=== PATIENT | female | born 1985 | race Caucasian/White ===

== ENCOUNTER 2022-10-22 16:15 | Emergency (ER) | payer MEDICARE, MEDICAID ==
[~2022-10-22] VITALS: Ht 162.6 cm; Wt 104.3 kg
[2022-10-22 16:39] VITALS: BP 160/95
[2022-10-22] MEDS ORDERED: Clindamycin HC150 MG PO (17:26)
[2022-10-22 17:52] LABS: Source, Urine Clean Catch
[2022-10-22 18:06] LABS: Appearance, Urine Hazy (Clear); Bilirubin, Urine Neg (Neg); Blood, Urine 2+ (Neg); Color, Urine Yellow (P-Yellow); Glucose Qualitative, Urine Neg (Neg); Ketones, Urine Neg (Neg); Leukocyte Esterase, Urine 3+ (Neg); Nitrite, Urine Pos (Neg); Protein, Urine 4+ (Neg); Urobilinogen, Urine NORM (Normal)
[2022-10-22 18:28] LABS: White Blood Cells, Urine 50-100 /hpf (0-5)
[2022-10-22 18:29] LABS: Bacteria Many /hpf; Squamous Epithelial Cells Few /hpf (Few)
[2022-10-22 18:31] LABS: Amorphous Light (0-Heavy)
[2022-10-22] MEDS ORDERED: MACRODANTIN100 M1 PO (18:35)
[2022-10-24 15:12] LABS: HIV AB/P24 AG SCREEN Non Reactive (Non Reactive)
[2022-10-24 23:07] LABS: CHLAMYDIA TRACHOMATIS, NAA Negative (Negative)
[2022-10-25 00:07] LABS: HBSAG SCREEN Negative (Negative)
[2022-10-25 03:09] LABS: HCV AB Non Reactive (Non Reactive)
== END 2022-10-22 18:49 | disposition home or self-care (01) ==
LOC: ER 16:15
PROVIDERS: Student in an Organized Health Care Education/Training Program
DX: N61.0 Mastitis without abscess (principal); Z88.1 Allergy status to other antibiotic agents
CPT/HCPCS: 81001; 81025; 86592; 87077; 87086; 87186

== ENCOUNTER 2023-03-01 21:47 | Emergency (ER) | payer MEDICARE ==
[~2023-03-01] VITALS: Ht 167.6 cm; Wt 68.0 kg
[~2023-03-01 21:47] MED LIST: Clindamycin HC150 MG PO; MACRODANTIN100 M1 PO
[2023-03-01 23:29] VITALS: BP 151/121
[2023-03-01] MEDS ORDERED: Prednisone20 MG PO (23:34)
== END 2023-03-01 23:45 | disposition home or self-care (01) ==
LOC: ER 21:47
DX: L23.7 Allergic contact dermatitis due to plants, except food (principal); Z88.1 Allergy status to other antibiotic agents; Z79.52 Long term (current) use of systemic steroids
CPT/HCPCS: 99282; J7512

== ENCOUNTER 2023-07-05 19:26 | Emergency (ER) | payer MEDICARE, OTHER ==
[~2023-07-05] VITALS: Ht 162.6 cm; Wt 104.3 kg
[~2023-07-05 19:26] MED LIST changes: +Prednisone20 MG PO
[2023-07-05 20:26] VITALS: BP 163/110
[2023-07-05 21:59] LABS: Source, Urine Clean Catch
[2023-07-05 22:13] LABS: Appearance, Urine Hazy (Clear); Bilirubin, Urine Neg (Neg); Blood, Urine 1+ (Neg); Color, Urine Yellow (P-Yellow); Glucose Qualitative, Urine Neg (Neg); Ketones, Urine Neg (Neg); Leukocyte Esterase, Urine 1+ (Neg); Nitrite, Urine Pos (Neg); Protein, Urine 3+ (Neg); Specific Gravity, Urine 1.015 (1.003-1.022); Urobilinogen, Urine NORM (Normal); pH, Urine 6.5 (5.0-8.0)
[2023-07-05 22:27] LABS: Bacteria Many /hpf; Red Blood Cells, Urine 0-2 /hpf (0-2); Squamous Epithelial Cells Rare /hpf (Few)
[2023-07-05 22:59] LABS: Candida species (DNA Probe) Negative (NEGATIVE); G. vaginalis (DNA Probe) Positive (NEGATIVE); T. vaginalis (DNA Probe) Positive (NEGATIVE)
[2023-07-09 08:31] LABS: HIV 1,2 COMBO ANTIGEN/ANTIBODY Negative (Negative)
[2023-07-09 13:19] LABS: HCV QNT BY NAAT (IU/ML) Not Detected; HCV QNT BY NAAT (LOG IU/ML) Not Detected; HCV QNT BY NAAT INTERP Not Detected (Not Detected)
== END 2023-07-06 00:28 | disposition left against medical advice (07) ==
LOC: ER 19:26
PROVIDERS: Student in an Organized Health Care Education/Training Program
DX: Z53.21 Procedure and treatment not carried out due to patient leaving prior to being seen by health care provider (principal)
CPT/HCPCS: 81001; 87077; 87086; 87186; 87389; 87480; 87510; 87522; 87660; 99281

== ENCOUNTER 2023-07-08 03:58 | Emergency (ER) | payer MEDICARE, OTHER ==
[~2023-07-08] VITALS: Ht 162.6 cm; Wt 99.8 kg
[2023-07-08 05:08] VITALS: BP 134/76
[2023-07-08] MEDS ORDERED: METR500 PO (05:54)
[2023-07-08] MEDS ORDERED: NITR100CA PO (05:54)
[2023-07-08] MEDS ORDERED: DOXY100 PO (05:54)
== END 2023-07-08 06:20 | disposition home or self-care (01) ==
LOC: ER 03:58
DX: N76.0 Acute vaginitis (principal); A59.9 Trichomoniasis, unspecified; Z88.1 Allergy status to other antibiotic agents
CPT/HCPCS: 96372; 99282-25; A9270; J0696